=== PATIENT | male | born 1990 | race Two or more races ===

== ENCOUNTER 2025-02-08 14:12 | Emergency (ER) | payer MEDICAID, SELFPAY ==
--- NOTE | 2025-02-08 14:30 | PC.NURSE ---
pt here with bleeding from right side lower lip after picking at bump.
[2025-02-08 14:38] VITALS: BP 122/74; PULSE 90; RESP 18; TEMP 37.2; O2SAT 96; BMI 24.7
--- NOTE | 2025-02-08 14:49 | PD.EDADULT ---
ED General RME/HPI General Chief complaint: Dental/Oral/Throat Stated complaint: LIP BLEEDING X 1 HOUR Time Seen by Provider: 02/08/25 14:14 Arrival date/time: 02/08/25 14:12 Limitations: no limitations RME / HPI RME / HPI narrative: DR. BERGMAN MAIN ED EVALUATION: 34 year old male presents to the Emergency Department with complaint of right lower lip bleeding prior to arrival. Patient was pulling on it and then it started bleeding. No other symptoms reported at this time. PMHx: Hypertension Social Hx: No tobacco, alcohol, or substance use. PCP: [facility] Related Data Home Medications ?Medication ?Instructions ?Recorded ?Confirmed Unknown 03/13/19 aspirin 81 mg tablet,delayed 81 mg PO QDAY 03/13/19 03/13/19 release (Aspir-) omega 3 350 mg-dha 235 mg-epa 90 1 tab PO DAILY 03/13/19 03/13/19 mg-fish oil 597 mg capsule,delay rel ([place]-3) Allergies Allergy/AdvReac Type Severity Reaction Status Date / Time No Known Allergies Allergy Verified 02/08/25 14:15 Review of Systems Review of Systems Systems Reviewed: All systems reviewed, normal except as documented Past Medical History Past Medical History CARDIAC: Positive Hypertension Family History FAMILY HISTORY: Positive Family Cardiac Disorders Social History SMOKING STATUS: Never smoker SECOND HAND EXPOSURE: No SUBSTANCE USE: does not use ALCOHOL: Never ED Exam General Limitations: Present no limitations General appearance: Present alert and in no apparent distress Head Head exam: Present atraumatic, normocephalic and normal inspection Eye Eye exam: Present normal appearance, PERRL and EOMI ENT ENT exam: Present normal exam, normal oropharynx and mucous membranes moist Expanded ENT Exam Mouth exam: Present laceration (right lower lip laceration) Neck Neck exam: Present normal inspection, full ROM and trachea midline Chest Chest inspection: Present normal inspection and symmetric chest wall rise Respiratory Respiratory exam: Present normal lung sounds bilaterally Cardiovascular Cardiovascular exam: Present regular rate, normal rhythm and normal heart sounds Abdominal Exam Abdominal exam: Present soft and normal bowel sounds Extremities Exam Extremities exam: Present normal inspection and full ROM Back Exam Back exam: Present normal inspection and full ROM Neurological Exam Neurological exam: Present alert, oriented X3 and CN II-XII intact Psychiatric Psychiatric exam: Present normal affect and normal mood Skin Skin exam: Present warm, dry, intact and normal color Course Quality Measures none Orders Category Date Time Status Lidocaine 1% 20 ml [Xylocaine 1% 20 ML] Med 02/08/25 14:49 Discontinued 10 ml INFL X1 ONE Vital Signs Vital signs: Vital Signs Temperature 98.9 F 02/08/25 14:38 Pulse Rate 90 02/08/25 14:38 Respiratory Rate 18 02/08/25 14:38 Blood Pressure 122/74 02/08/25 14:38 Pulse Oximetry (%) 96 02/08/25 14:38 Oxygen Delivery Method Room Air 02/08/25 14:38 PROCEDURES: Laceration Laceration 1: Site: lip (right lower lip) Side (If applicable): right Description: linear Depth: simple, single layer Local Anesthetic: lidocaine 2% Amount of anesthesia used (mL): 3 Pre-repair: wound explored and irrigated extensively Suture size (cm): 5-0 Number of sutures: 3 Technique: simple, interrupted (3 separate sutures, interrupted) Discharge Plan Plan Patient Disposition: HOME (Self Care) Prescriptions/Referrals Prescriptions/Med Rec: No Action aspirin [Aspir-81] 81 mg Tablet,Delayed Release (Dr/Ec) 81 mg PO QDAY [place]-3 350 mg-235 mg- 90 mg-597 mg Capsule,Delayed Release(Dr/Ec) 1 tab PO DAILY Unknown Rx Instructions: unknown blood pressure medication Problem List Clinical Impression: Lip lesion, Bleeding Patient/Caregiver Discharge Instructions Other Activity Instructions:: Wash wound gently each day. Wound check in 2 days and take out sutures in 5 days. Diet Instructions: Liquid diet for 24 hours. Additional Instructions: Carefully inspect the right lower lip after the sutures are removed for an underlying skin lesion such as a skin cancer. Please refer to Dermatology if indicated. Inspeccione patsymente el labio inferior derecho despu?s de retirar las suturas para detectar gerardo lesi?n cut?skylar subyacente, carlos un c?ncer de piel. Consulte a Dermatolog?a si est? indicado. Print Language: Welsh [facility] Narrative MDM hospital course: I, Yin Lancaster, am scribing for and in the presence of Dr. Bergman. Clinical Information Provided by patient Medical Records Reviewed [facility] Meds/Rx Considered, not Ordered None Labs/Rad/Tests considered, not Ordered None Chronic Illness/Social Conditions Add or document further as needed: Hypertension EKG EKG not done Lab Interpretation Labs: none Imaging Imaging interpretation: none Medication Administration(s) Medication Administration History Discontinued Medications Lidocaine HCl (Lidocaine Hcl 1% 20 Ml Vial) 10 ml INFL X1 ONE Stop: 02/08/25 14:50 Last Admin: 02/08/25 15:22 Dose: 10 ml Documented By: [facility] Comments: used bt md Diagnosis Differential diagnosis: laceration, trauma Most likely dx, and/or detailed dx discussion: Lip lesion Bleeding Dispositon Disposition: Discharge Home
[2025-02-08] MEDS: LIDOCAINE HCL 1% 20 ML VIAL 10 ML INFL (15:22)
[2025-02-08 16:00] VITALS: BP 121/82; PULSE 71; RESP 18; O2SAT 99
== END 2025-02-08 16:24 | disposition home or self-care (01) ==
PROVIDERS: Emergency Provider Family Medicine
DX: S01.511A Laceration without foreign body of lip, initial encounter (principal); K13.0 Diseases of lips; X58.XXXA Exposure to other specified factors, initial encounter
CPT/HCPCS: 12013; 99283; J3490